=== PATIENT | female | born 1940 | race Caucasian/White ===

== ENCOUNTER 2016-07-10 14:51 | Inpatient (IN) | payer OTHER ==
[~2016-07-10] VITALS: Ht 170.2 cm; Wt 73.5 kg
[2016-07-10 15:03] VITALS: BP 114/83; PULSE 114; RESP 22; TEMP 99.4; O2SAT 85
[2016-07-10] MEDS ORDERED: methylPREDNISolone SOD SUCC/PF 62.5 MG/ML VIAL IVP ONE (15:30)
[2016-07-10] MEDS ORDERED: IPRATROPIUM/ALBUTEROL SULFATE 3 ML AMPUL.NEB INH ONE (15:45)
[2016-07-10 16:17] LABS: BLOOD GAS PH 7.408 (7.350-7.450)
[2016-07-10 16:18] LABS: ABG TOTAL HEMOGLOBIN 13.7 G/dL (12.0-18.0); BLOOD GAS BASE EXCESS 8.6 mmol/L (-3.0-3.0); BLOOD GAS COHb% 1.4 % (0.5-1.5); BLOOD O2Hb% 84.9 % (94.0-97.0)
[2016-07-10 16:19] LABS: BLOOD GAS HHB 13.6 % (0.0-6.0)
[2016-07-10] MEDS ORDERED: cefTRIAXone 1 GM IVPB PREMIX 50 ML IV ONE (16:45)
[2016-07-10] MEDS ORDERED: AZITHROMYCIN 500 MG in NS 250 ML IV ONE (16:45)
[2016-07-10] MEDS ORDERED: AZITHROMYCIN 500 MG/VIAL (ZITHROMAX) IV ONE (17:04)
[2016-07-10] MEDS ORDERED: cefTRIAXone 1 GM VIAL ONE (17:07)
[2016-07-10 17:12] LABS: BASOPHILS # (AUTO) 0.1 K/uL (0.0-0.2); BASOPHILS % (AUTO) 0.4 % (0.0-2.0); EOSINOPHILS # (AUTO) 0.1 K/uL (0.0-0.4); EOSINOPHILS % (AUTO) 0.9 % (0.0-4.0); HEMOGLOBIN 12.7 g/dL (12.0-16.0); LYMPHOCYTES % (AUTO) 6.9 % (20.5-51.5); MEAN CORPUSCULAR HEMOGLOBIN 32 pg (27-31); MEAN CORPUSCULAR HGB CONC 33 % (32-36); MEAN CORPUSCULAR VOLUME 95 fL (79.0-98.0); MONOCYTES # (AUTO) 1.2 K/uL (0.0-1.0); MONOCYTES % (AUTO) 8.2 % (1.7-9.3); NEUTROPHILS # (AUTO) 11.9 K/uL (1.8-7.7); NEUTROPHILS % (AUTO) 83.6 % (40.0-70.0); PLATELET COUNT (AUTO) 342 K/uL (130-430); RED BLOOD CELL COUNT(AUTO) 4.01 MIL/uL (4.2-6.2); RED CELL DISTRIBUTION WIDTH 12.5 % (9.0-15.0); WHITE BLOOD COUNT (AUTO) 14.3 K/uL (4.8-10.8)
[2016-07-10 17:25] LABS: ANION GAP 6 (5-15); CHLORIDE 96 mmol/L (98-107); CREATININE 0.66 mg/dL (0.55-1.30); GLUCOSE 109 mg/dL (70-99); POTASSIUM 3.8 mmol/L (3.5-5.1); SODIUM SERUM 138 mmol/L (136-145); UREA NITROGEN, BLOOD 15 mg/dL (8-21)
[2016-07-10 17:30] LABS: ALANINE AMINOTRANSFERASE 61 U/L (12-78); ALBUMIN 3.6 g/dL (3.4-4.8); ASPARTATE AMINOTRANSFERASE 43 U/L (10-37); TOTAL BILIRUBIN 0.3 mg/dL (0.0-1.0); TOTAL PROTEIN, SERUM 8.1 g/dL (6.4-8.3)
[2016-07-10] MEDS ORDERED: ASCO500T20 PO (17:44)
[2016-07-10] MEDS ORDERED: VITD2000 PO (17:44)
[2016-07-10] MEDS ORDERED: ASPI-862 PO (17:44)
[2016-07-10] MEDS ORDERED: ACET-1010 PO (17:44)
[2016-07-10] MEDS ORDERED: ALBU8.5H8 INH (17:44)
[2016-07-10] MEDS ORDERED: FAMO20TA98 PO (17:44)
[2016-07-10] MEDS ORDERED: MULT PO (17:44)
[2016-07-10] MEDS ORDERED: OMEP40CA33 PO (17:44)
[2016-07-10] MEDS ORDERED: ALEN10TA6 PO (17:44)
[2016-07-10] MEDS ORDERED: CYAN100067 PO (17:44)
[2016-07-10] MEDS ORDERED: LIP40 PO (17:44)
[2016-07-10] MEDS ORDERED: IBUP-1611 PO (17:44)
[2016-07-10] MEDS ORDERED: CALC-808 PO (17:44)
[2016-07-10 18:21] VITALS: BP 128/68; PULSE 95; RESP 20; TEMP 99.6; O2SAT 93
[2016-07-10] MEDS ORDERED: IPRATROPIUM/ALBUTEROL SULFATE 3 ML AMPUL.NEB INH SCH (19:00)
[2016-07-10 20:00] VITALS: BP 125/71; PULSE 94; RESP 20; TEMP 97.3; O2SAT 92
[2016-07-10] MEDS: IPRATROPIUM/ALBUTEROL SULFATE 3 ML AMPUL.NEB INH SCH ×2 (20:20→23:00)
[2016-07-10] MEDS ORDERED: methylPREDNISolone SOD SUCC 40 MG/ML VIAL IVP ONE (21:00)
[2016-07-10] MEDS: methylPREDNISolone SOD SUCC 40 MG/ML VIAL IVP SCH (23:05)
[2016-07-11] MEDS: IPRATROPIUM/ALBUTEROL SULFATE 3 ML AMPUL.NEB INH SCH ×5 (03:00→23:35)
[2016-07-11 03:43] VITALS: BP 127/72; PULSE 62; RESP 18; TEMP 97.6; O2SAT 96
[2016-07-11 05:06] VITALS: BP 127/72; PULSE 62
[2016-07-11 08:10] VITALS: BP 121/66; PULSE 90; RESP 17; TEMP 97.4; O2SAT 93
[2016-07-11 08:28] LABS: ALANINE AMINOTRANSFERASE 50 U/L (12-78); ANION GAP 4 (5-15); ASPARTATE AMINOTRANSFERASE 26 U/L (10-37); CALCIUM 8.9 mg/dL (8.4-11.0); CHLORIDE 99 mmol/L (98-107); CREATININE 0.74 mg/dL (0.55-1.30); GLUCOSE 142 mg/dL (70-99); POTASSIUM 4.5 mmol/L (3.5-5.1); SODIUM SERUM 140 mmol/L (136-145); TOTAL BILIRUBIN 0.2 mg/dL (0.0-1.0); TOTAL PROTEIN, SERUM 7.5 g/dL (6.4-8.3); UREA NITROGEN, BLOOD 18 mg/dL (8-21)
[2016-07-11 08:39] LABS: BASOPHILS % (AUTO) 0.1 % (0.0-2.0); HEMATOCRIT 36.2 % (36-48); HEMOGLOBIN 12.2 g/dL (12.0-16.0); LYMPHOCYTES # (AUTO) 0.5 K/uL (1.0-5.5); LYMPHOCYTES % (AUTO) 4.5 % (20.5-51.5); MEAN CORPUSCULAR HEMOGLOBIN 32 pg (27-31); MEAN CORPUSCULAR HGB CONC 34 % (32-36); MEAN CORPUSCULAR VOLUME 95 fL (79.0-98.0); MONOCYTES # (AUTO) 0.4 K/uL (0.0-1.0); MONOCYTES % (AUTO) 3.6 % (1.7-9.3); NEUTROPHILS # (AUTO) 11.2 K/uL (1.8-7.7); NEUTROPHILS % (AUTO) 91.8 % (40.0-70.0); PLATELET COUNT (AUTO) 313 K/uL (130-430); RED BLOOD CELL COUNT(AUTO) 3.82 MIL/uL (4.2-6.2); RED CELL DISTRIBUTION WIDTH 12.5 % (9.0-15.0); WHITE BLOOD COUNT (AUTO) 12.1 K/uL (4.8-10.8)
[2016-07-11] MEDS: methylPREDNISolone SOD SUCC 40 MG/ML VIAL IVP SCH ×3 (09:03→21:24)
[2016-07-11] MEDS ORDERED: cefTRIAXone 1 GM IVPB PREMIX 50 ML IV SCH (09:45)
[2016-07-11] MEDS ORDERED: IBUPROFEN 200 MG TABLET PO PRN (09:45)
[2016-07-11] MEDS ORDERED: ACETAMINOPHEN 500 MG TABLET PO PRN (09:45)
[2016-07-11] MEDS ORDERED: CHOLECALCIFEROL (VITAMIN D3) 2,000 UNIT TABLET PO ONE (10:00)
[2016-07-11] MEDS ORDERED: MULTIVITAMINS TAB 1 TABLET PO ONE (10:00)
[2016-07-11] MEDS ORDERED: OMEPRAZOLE 20 MG CAPSULE.DR (PriLOSEC) PO ONE (10:00)
[2016-07-11] MEDS ORDERED: ASPIRIN 325 MG TABLET (ECOTRIN) PO ONE (10:00)
[2016-07-11] MEDS ORDERED: AZITHROMYCIN 500 MG in NS 250 ML IV ONE (10:00)
[2016-07-11] MEDS ORDERED: ASCORBIC ACID 500 MG TABLET PO ONE (10:00)
[2016-07-11] MEDS ORDERED: CYANOCOBALAMIN 1000 mCg TABLET PO ONE (10:00)
[2016-07-11] MEDS ORDERED: ENOXAPARIN SODIUM 30 MG/0.3 ML SYRINGE SUBCUT ONE (10:00)
[2016-07-11] MEDS ORDERED: cefTRIAXone 1 GM IVPB PREMIX 50 ML IV ONE (10:00)
[2016-07-11] MEDS: FAMOTIDINE 20 MG TABLET PO ONE ×2 (10:38→10:46)
[2016-07-11 11:40] VITALS: BP 109/65; PULSE 74; RESP 18; TEMP 98.2; O2SAT 98
[2016-07-11 17:10] VITALS: BP 105/66; PULSE 70; RESP 18; TEMP 98.4; O2SAT 98
[2016-07-11 20:00] VITALS: BP 118/74; PULSE 90; PULSE 91; RESP 18; TEMP 98.4; O2SAT 95
[2016-07-11] MEDS: ATORVASTATIN 20 MG TABLET PO SCH (20:31)
[2016-07-11] MEDS: FAMOTIDINE 20 MG TABLET PO SCH (20:32)
[2016-07-12 01:44] VITALS: BP 125/60; PULSE 87; RESP 17; TEMP 97.9; O2SAT 92
[2016-07-12] MEDS ORDERED: guaiFENesin 200 MG/CODEINE 20 MG/ 10 ML UDC PO PRN (02:45)
[2016-07-12] MEDS: IPRATROPIUM/ALBUTEROL SULFATE 3 ML AMPUL.NEB INH SCH ×4 (03:39→17:11)
[2016-07-12 04:56] VITALS: BP 110/54; PULSE 86; RESP 16; TEMP 97; O2SAT 97
[2016-07-12] MEDS: methylPREDNISolone SOD SUCC 40 MG/ML VIAL IVP SCH ×3 (06:04→23:00)
[2016-07-12 08:00] VITALS: BP 126/72; PULSE 98; RESP 18; TEMP 97.9; O2SAT 96
[2016-07-12] MEDS: ASPIRIN 325 MG TABLET (ECOTRIN) PO SCH (09:22)
[2016-07-12] MEDS: ENOXAPARIN SODIUM 30 MG/0.3 ML SYRINGE SUBCUT SCH (09:22)
[2016-07-12] MEDS: ASCORBIC ACID 500 MG TABLET PO SCH (09:22)
[2016-07-12] MEDS: CHOLECALCIFEROL (VITAMIN D3) 2,000 UNIT TABLET PO SCH (09:23)
[2016-07-12] MEDS: OMEPRAZOLE 20 MG CAPSULE.DR (PriLOSEC) PO SCH (09:23)
[2016-07-12] MEDS: MULTIVITAMINS TAB 1 TABLET PO SCH (09:23)
[2016-07-12] MEDS: AZITHROMYCIN 500 MG in NS 250 ML IV SCH (09:24)
[2016-07-12] MEDS: FAMOTIDINE 20 MG TABLET PO SCH ×2 (09:24→23:00)
[2016-07-12] MEDS: CYANOCOBALAMIN 1000 mCg TABLET PO SCH (09:24)
[2016-07-12] MEDS ORDERED: BENZONATATE 100 MG CAPSULE (TESSALON) PO PRN (09:30)
[2016-07-12] MEDS ORDERED: FUROSEMIDE 20 MG/2 ML VIAL IVP ONE (10:15)
[2016-07-12] MEDS: guaiFENesin ER 600 MG TAB PO SCH ×2 (10:15→23:00)
[2016-07-12] MEDS ORDERED: guaiFENesin ER 600 MG TAB PO ONE (12:30)
[2016-07-12] MEDS: cefTRIAXone 1 GM IVPB PREMIX 50 ML IV SCH (12:32)
[2016-07-12 12:49] VITALS: BP 135/89; PULSE 79; RESP 18; TEMP 98.3; O2SAT 96
[2016-07-12 16:46] VITALS: BP 132/76; PULSE 78; RESP 18; TEMP 98; O2SAT 96
[2016-07-12 20:00] VITALS: BP 135/73; PULSE 87; RESP 16; TEMP 97.6; O2SAT 94
[2016-07-12] MEDS: ATORVASTATIN 20 MG TABLET PO SCH (23:00)
[2016-07-13] VITALS (7 sets, daily range): BP systolic 102–152; BP diastolic 61–79; PULSE 71–100; RESP 17–21; TEMP 96.6–98.2; O2SAT 96–98
[2016-07-13] MEDS: IPRATROPIUM/ALBUTEROL SULFATE 3 ML AMPUL.NEB INH SCH ×8 (01:09→23:14)
[2016-07-13] MEDS: methylPREDNISolone SOD SUCC 40 MG/ML VIAL IVP SCH ×3 (06:22→21:28)
[2016-07-13 07:37] LABS: HEMATOCRIT 34.7 % (36-48); HEMOGLOBIN 11.6 g/dL (12.0-16.0); LYMPHOCYTES # (AUTO) 0.6 K/uL (1.0-5.5); LYMPHOCYTES % (AUTO) 3.9 % (20.5-51.5); MEAN CORPUSCULAR HEMOGLOBIN 33 pg (27-31); MEAN CORPUSCULAR HGB CONC 34 % (32-36); MEAN CORPUSCULAR VOLUME 97 fL (79.0-98.0); MONOCYTES # (AUTO) 0.6 K/uL (0.0-1.0); MONOCYTES % (AUTO) 3.8 % (1.7-9.3); NEUTROPHILS # (AUTO) 15.3 K/uL (1.8-7.7); NEUTROPHILS % (AUTO) 92.3 % (40.0-70.0); PLATELET COUNT (AUTO) 301 K/uL (130-430); RED BLOOD CELL COUNT(AUTO) 3.57 MIL/uL (4.2-6.2); RED CELL DISTRIBUTION WIDTH 12.5 % (9.0-15.0)
[2016-07-13 07:39] LABS: ANION GAP 4 (5-15); CALCIUM 8.3 mg/dL (8.4-11.0); CHLORIDE 97 mmol/L (98-107); GLUCOSE 144 mg/dL (70-99); POTASSIUM 4.3 mmol/L (3.5-5.1); SODIUM SERUM 139 mmol/L (136-145); UREA NITROGEN, BLOOD 23 mg/dL (8-21)
[2016-07-13 08:29] LABS: WHITE BLOOD COUNT (AUTO) 16.5 K/uL (4.8-10.8)
[2016-07-13] MEDS: guaiFENesin ER 600 MG TAB PO SCH ×2 (09:21→20:28)
[2016-07-13] MEDS: MULTIVITAMINS TAB 1 TABLET PO SCH (09:21)
[2016-07-13] MEDS: ASPIRIN 325 MG TABLET (ECOTRIN) PO SCH (09:21)
[2016-07-13] MEDS: CYANOCOBALAMIN 1000 mCg TABLET PO SCH (09:22)
[2016-07-13] MEDS: OMEPRAZOLE 20 MG CAPSULE.DR (PriLOSEC) PO SCH (09:22)
[2016-07-13] MEDS: FAMOTIDINE 20 MG TABLET PO SCH ×2 (09:22→20:28)
[2016-07-13] MEDS: CHOLECALCIFEROL (VITAMIN D3) 2,000 UNIT TABLET PO SCH (09:23)
[2016-07-13] MEDS: ENOXAPARIN SODIUM 30 MG/0.3 ML SYRINGE SUBCUT SCH (09:23)
[2016-07-13] MEDS: ASCORBIC ACID 500 MG TABLET PO SCH (09:23)
[2016-07-13] MEDS: AZITHROMYCIN 500 MG in NS 250 ML IV SCH (09:27)
[2016-07-13] MEDS: cefTRIAXone 1 GM IVPB PREMIX 50 ML IV SCH (09:27)
[2016-07-13] MEDS ORDERED: FUROSEMIDE 20 MG TABLET PO ONE (10:45)
[2016-07-13] MEDS: ATORVASTATIN 20 MG TABLET PO SCH (20:29)
[2016-07-14 00:45] VITALS: BP 124/58; PULSE 69; RESP 17; TEMP 97.5; O2SAT 97
[2016-07-14] MEDS: IPRATROPIUM/ALBUTEROL SULFATE 3 ML AMPUL.NEB INH SCH ×3 (02:34→14:47)
[2016-07-14 04:20] VITALS: BP 105/47; PULSE 72; RESP 16; TEMP 97.1; O2SAT 98
[2016-07-14] MEDS: methylPREDNISolone SOD SUCC 40 MG/ML VIAL IVP SCH (05:09)
[2016-07-14 08:00] VITALS: BP 135/76; RESP 16; TEMP 97.5; O2SAT 90
[2016-07-14] MEDS: AZITHROMYCIN 500 MG in NS 250 ML IV SCH (09:49)
[2016-07-14] MEDS: guaiFENesin ER 600 MG TAB PO SCH (09:50)
[2016-07-14] MEDS: MULTIVITAMINS TAB 1 TABLET PO SCH (09:50)
[2016-07-14] MEDS: FAMOTIDINE 20 MG TABLET PO SCH (09:50)
[2016-07-14] MEDS: ASPIRIN 325 MG TABLET (ECOTRIN) PO SCH (09:50)
[2016-07-14] MEDS: CYANOCOBALAMIN 1000 mCg TABLET PO SCH (09:51)
[2016-07-14] MEDS: OMEPRAZOLE 20 MG CAPSULE.DR (PriLOSEC) PO SCH (09:51)
[2016-07-14] MEDS: CHOLECALCIFEROL (VITAMIN D3) 2,000 UNIT TABLET PO SCH (09:51)
[2016-07-14] MEDS: ASCORBIC ACID 500 MG TABLET PO SCH (09:51)
[2016-07-14] MEDS: ENOXAPARIN SODIUM 30 MG/0.3 ML SYRINGE SUBCUT SCH (09:51)
[2016-07-14 10:47] LABS: BLOOD GAS PH 7.387 (7.350-7.450)
[2016-07-14 10:48] LABS: ABG TOTAL HEMOGLOBIN 13.8 G/dL (12.0-18.0); BLOOD GAS BASE EXCESS 5.9 mmol/L (-3.0-3.0); BLOOD GAS COHb% 0.2 % (0.5-1.5); BLOOD O2Hb% 91.8 % (94.0-97.0)
[2016-07-14 12:09] VITALS: BP 113/69; PULSE 75; RESP 18; TEMP 97; O2SAT 97
[2016-07-14] MEDS: cefTRIAXone 1 GM IVPB PREMIX 50 ML IV SCH (13:12)
[2016-07-14 16:51] VITALS: BP 124/65; PULSE 76; RESP 18; TEMP 97.7; O2SAT 97
[2016-07-14 17:22] VITALS: BP 124/65; PULSE 76; RESP 18; TEMP 97.7; O2SAT 97
[2016-07-14] MEDS ORDERED: methylPREDNISolone SOD SUCC 40 MG/ML VIAL IVP SCH (21:00)
== END 2016-07-14 18:35 | disposition home health service (06) | DRG 189 ==
LOC: SED 14:51 → STU 16:58 → SMU 07-12 15:39
PROVIDERS: ADMIT General Practice; ATTEND Internal Medicine Hospice and Palliative Medicine
DX: J96.01 Acute respiratory failure with hypoxia (principal); J44.1 Chronic obstructive pulmonary disease with (acute) exacerbation; I10 Essential (primary) hypertension; F17.200 Nicotine dependence, unspecified, uncomplicated; E78.5 Hyperlipidemia, unspecified; R60.0 Localized edema; Z90.49 Acquired absence of other specified parts of digestive tract; Z79.82 Long term (current) use of aspirin; Z79.899 Other long term (current) drug therapy
CPT/HCPCS: 36415; 36600; 71010; 80048; 80053; 82803-TC; 83605; 83880; 85025; 87040-TC; 93306; 93970; 94640; 94760; 96365; 96375; J0456; J0696; J1030; J1650; J1940; J2930; J7050

== ENCOUNTER 2018-12-23 12:22 | Emergency (ER) | payer OTHER ==
[~2018-12-23] VITALS: Ht 167.6 cm; Wt 77.1 kg
[~2018-12-23 12:22] MED LIST: ACET-2634 PO; ALBU8.5H8 INH; ALEN10TA6 PO; ASCO500T20 PO; ASPI-862 PO; CALC-808 PO; CYAN100010 PO; FAMO-132 PO; IBUP-2253 PO; LIP40 PO; MULT PO; OMEP40CA33 PO; VITD2000 PO
[2018-12-23 12:36] VITALS: BP_SYST 141
--- NOTE | 2018-12-23 12:53 | NUR ---
Placed in room 7. Placed on monitoring and evaluation advisor, blood pressure machine and pulse oximeter. To gown for exam. Side rails up. Report given to Marlee SHIN.
--- NOTE | 2018-12-23 13:00 | NUR ---
Pt brought by son , [id number], pt presents to ER with cough x 4 days, chest back ache and hip pain during inspiration, mild dyspnea, skin pink and warm, cap refill <3, VSS.
--- NOTE | 2018-12-23 13:10 | NUR ---
Dr Robledo at bedside examining patient
--- NOTE | 2018-12-23 14:00 | NUR ---
Pt sitting in bed , VSS, respirations even and unlabored, family at bedside
[2018-12-23] MEDS ORDERED: IPRATROPIUM/ALBUTEROL SULFATE 3 ML AMPUL.NEB (DUONEB) INH ONE (14:15)
[2018-12-23] MEDS ORDERED: cefTRIAXone 1 GM VIAL IM ONE (14:15)
[2018-12-23] MEDS ORDERED: DEXAMETHASONE SOD PHOSPHATE 10 MG/ML VIAL IM ONE (14:15)
[2018-12-23] MEDS ORDERED: LIDOCAINE 1%, 20 ML MDV 20 ML ONE (14:22)
[2018-12-23 15:04] VITALS: BP_SYST 122
--- NOTE | 2018-12-23 15:07 | NUR ---
Patient given written and verbal discharge instructions and verbalizes understanding. ER MD discussed with patient the results and treatment provided. Patient in stable condition. ID arm band removed. IV catheter removed intact and dressing applied, no active bleeding. Rx of Doxycycline, Proair, Mucinex, Promethazine with codeine given. Patient educated on pain management and to follow up with PMD. Pain Scale 3/10 tolerable for pt. Opportunity for questions provided and answered. Medication side effect fact sheet provided.
== END 2018-12-23 15:04 | disposition home or self-care (01) ==
LOC: SED 12:22
DX: J44.1 Chronic obstructive pulmonary disease with (acute) exacerbation (principal); E78.5 Hyperlipidemia, unspecified; Z90.49 Acquired absence of other specified parts of digestive tract; Z90.89 Acquired absence of other organs; Z87.891 Personal history of nicotine dependence; Z79.899 Other long term (current) drug therapy; Z79.82 Long term (current) use of aspirin
CPT/HCPCS: 94640; 96372; 99283; J0696; J1100; J2001; J7620